=== PATIENT | male | born 1985 | race Asian ===

== ENCOUNTER → 2016-08-30 | Outpatient (REF) ==
[2016-08-30 18:35] LABS: TOTAL IRON BINDING CAPACITY 327 ug/dL (261-462)
[2016-08-30 18:54] LABS: C-REACTIVE PROTEIN < 0.5 mg/dL (0.0-0.9)
[2016-08-30 19:18] LABS: THYROID STIMULATING HORMONE 0.465 uIU/mL (0.465-4.680)
== END ==
LOC: ZLAB.WCH 18:00
PROVIDERS: Internal Medicine
DX: Z01.89 Encounter for other specified special examinations (principal)

== ENCOUNTER → 2016-09-27 | Outpatient (CLI) | payer BC | LOC: COL.PUL 11:01 | DX: R06.09 Other forms of dyspnea (principal); F17.200 Nicotine dependence, unspecified, uncomplicated ==

== ENCOUNTER → 2018-08-28 | Outpatient (REF) | LOC: ZLAB.WCH 09:09 | DX: Z01.89 Encounter for other specified special examinations (principal) ==

== ENCOUNTER 2020-05-23 21:12 | Emergency (ER) | payer BC ==
[~2020-05-23] VITALS: Ht 167.6 cm; Wt 54.5 kg
[2020-05-23 21:15] VITALS: TEMP 98.1
[2020-05-23 21:47] LABS: BASO % 0.5 % (0.0-2.0); EOS # 0.1 (0.0-0.7); EOS % 1.7 % (0-4.0); GRAN # 4.7 (1.4-6.5); GRAN % 60.3 % (42.2-75.2); HEMATOCRIT 44.5 % (42.0-52.0); HEMOGLOBIN 15.3 g/dl (13.5-18.0); LYMPH # 2.4 (1.2-3.4); LYMPH % 30.4 % (20.0-51.0); MEAN CELL VOLUME 86 fl (80.0-100.0); MEAN CORPUSCULAR HEMOGLOBIN 30 pg (27.0-31.0); MEAN CORPUSCULAR HGB CONC 34 g/dl (33.0-37.0); MEAN PLATELET VOLUME 10.3 fl (7.4-10.4); MONO # 0.5 (0.1-0.6); MONO % 6.7 % (1.7-9.3); PLATELET COUNT 181 K/mm3 (130-400); RED BLOOD COUNT 5.18 M/mm3 (4.20-5.60); REDCELL DISTRIBUTION WIDTH-CV 12.6 % (11.5-14.5)
[2020-05-23 22:02] LABS: ALANINE AMINOTRANSFERASE 25 U/L (4-49); ALBUMIN 4.6 gm/dL (3.5-5.0); ALKALINE PHOSPHATASE 80 U/L (50-136); ANION GAP 11 mmol/L (7-16); AST,SGOT 27 U/L (15-37); BILIRUBIN,TOTAL 0.3 mg/dL (0.0-1.0); BLOOD UREA NITROGEN 14 mg/dL (9-20); CARBON DIOXIDE 27 mmol/L (22-30); CHLORIDE 101 mmol/L (98-107); CREATININE, serum 0.78 (0.66-1.25); GLUCOSE 185 mg/dL (74-106); POTASSIUM 3.5 mmol/L (3.4-5.0); SODIUM 138 mmol/L (137-145)
[2020-05-23 22:14] LABS: TROPONIN-I < 0.012 ng/mL (0.000-0.035)
[2020-05-23 23:11] VITALS: BP 148/70; PULSE 66
== END 2020-05-23 23:11 | disposition home or self-care (01) ==
LOC: COL.ER 21:12
PROVIDERS: Emergency Medicine
DX: I10 Essential (primary) hypertension (principal); F17.200 Nicotine dependence, unspecified, uncomplicated